=== PATIENT | male | born 1990 | race Caucasian/White ===

== ENCOUNTER → 2016-11-06 | Outpatient (CLI) | payer BC ==
--- NOTE | 2016-11-09 13:46 | MAMMOGRAPHY REPORT ---
MALE BILATERAL DIGITAL DIAGNOSTIC MAMMOGRAM AND TARGETED BILATERAL ULTRASOUND: 11/06/2016 CLINICAL HISTORY: The patient reports a palpable left breast lump for approximately 2 months. He de nies any associated pain or nipple discharge. He denies any right breast lump. TECHNIQUE: Bilateral CC and MLO views were obtained. COMPARISON: No prior exams were available for comparison. BREAST COMPOSITION: The tissue of both breasts is predominantly fatty. FINDINGS: A triangle marker way the site of the palpable lump in the left upper outer subareolar breast. There is fibroglandular tissue seen in bilateral subareolar regions which is bilaterally sy mmetric and has the appearance of gynecomastia. No suspicious masses, calcifications, or areas of a rchitectural distortion are noted in either breast. Scattered benign-appearing calcifications are n oted bilaterally. Targeted ultrasound was performed of bilateral subareolar breasts, which shows hypoechoic tissue in bilateral subareolar breasts, which is symmetric bilaterally and consistent with gynecomastia. Targ eted ultrasound was performed of the area of the discrete palpable lump pointed out by the patient, in the left breast at 10:00 periareolar region. Some of the fibroglandular tissue extends up to thi s region. There is focal minimal thickening of the skin/areola at the site of the palpable lump, me asuring up to 3 mm in thickness, with no intradermal mass seen. No suspicious mass or other suspici ous abnormality is seen in this region. IMPRESSION: ACR BI-RADS CATEGORY 2: BENIGN, TARGETED ULTRASOUND ACR BI-RADS CATEGORY 2: BENIGN Benign gynecomastia in bilateral subareolar regions, which likely accounts for the palpable lump in the left 10:00 periareolar breast pointed out by the patient. There is also minimal focal thickenin g of the skin/areola at the site of the palpable lump, with no intradermal mass seen. There is no m ammographic or targeted sonographic evidence of malignancy. Recommend clinical follow-up; any decis ion to biopsy should be based on clinical grounds. If the lump clinically increases in size then re commend fine-needle aspiration by the pathology department for further evaluation. The patient has been verbally notified of the results. Approximately 10% of breast cancers are not detected with mammography. A negative mammographic repor t should not delay biopsy if a clinically suggestive mass is present. Maira torres/:11/06/2016 09:33:54 Store Associate: Samira RIVERA)(M), [facility] letter sent: Normal 1/2 BI-RADS Code: ACR BI-RADS Category 2: Benign Ultrasound BI-RADS: ACR BI-RADS Category 2: Benign
== END | disposition home or self-care (01) ==
LOC: C.MAMM 08:04
PROVIDERS: ATTEND Nurse Practitioner Family
DX: N63 Unspecified lump in breast (principal); N64.89 Other specified disorders of breast; N62 Hypertrophy of breast